=== PATIENT | female | born 1990 | race Two or more races ===

== ENCOUNTER 2018-01-04 21:27 | Emergency (ER) | payer SELFPAY ==
[~2018-01-04] VITALS: Ht 162.6 cm; Wt 63.5 kg
--- NOTE | 2018-01-04 21:50 | NUR ---
TO BED 6 A 27 YO FEMALE PT BIB FRIEND FROM HOME, PT C/O HAVING A 5 MINUTE SIEZURE EARLIER AND FEEL ALOT OF ANXIETY. PATIENT TOOK XANAX PRIOR TO ARRIVAL. PATIENT IS AAOX4. VSS. NAD NOTED. SKIN WARM AND DRY. AMBULATORY. SAFETY MEASURES IN PLACE. FRIEND AT BEDSIDE.
[2018-01-04] MEDS ORDERED: LORAZEPAM INJ 2 MG/ML VIAL ONE (22:41)
[2018-01-04 22:49] LABS: APPEARANCE,URINE SL CLOUDY (CLEAR); BILIRUBIN,URINE NEGATIVE (NEGATIVE); BLOOD, URINE NEGATIVE Ery/uL (NEGATIVE); COLOR,URINE YELLOW (YELLOW); KETONES,URINE NEGATIVE (NEGATIVE); LEUKOCYTE ESTERASE ,URINE 2+ (NEGATIVE); NITRITE, URINE NEGATIVE (NEGATIVE); PROTEIN,URINE NEGATIVE (NEGATIVE); UGLUCOSE NEGATIVE (NEGATIVE); UROBILINOGEN,URINE 0.2 EU/dL (0.2)
--- NOTE | 2018-01-04 22:50 | NUR ---
STARTED A SALINE LOCK ON THE LAC G18, BLOOD DRAWN AND SENT TO LAB.
--- NOTE | 2018-01-04 22:56 | NUR ---
MEDICATED PATIENT ORDERED BY JULIA ALDANA.
[2018-01-04 22:57] LABS: BACTERIA,URINE None seen /HPF (None Seen); RBC,URINE NONE SEEN /HPF (0-2); SQUAMOUS EPITHELIAL CELL,UR Many /HPF (None Seen)
[2018-01-04] MEDS ORDERED: IV NS 0.9% 1,000 ML BAG IV ONE (23:00)
[2018-01-04] MEDS ORDERED: LORAZEPAM INJ 2 MG/ML VIAL IVP ONE (23:00)
[2018-01-04 23:08] LABS: BASOPHILS % (AUTO) 0.7 % (0.0-2.0); EOSINOPHILS # (AUTO) 0.1 /CMM (0.0-0.7); EOSINOPHILS % (AUTO) 1.3 % (0.0-6.0); HEMATOCRIT 42 % (33-45); HEMOGLOBIN 14.3 g/dL (11.5-14.8); LYMPHOCYTES # (AUTO) 2.1 /CMM (0.8-4.8); LYMPHOCYTES % (AUTO) 49.2 % (20.0-44.0); MEAN CORPUSCULAR HEMOGLOBIN 30 PG (26.0-33.0); MEAN CORPUSCULAR HGB CONC 34 g/dl (31.0-36.0); MEAN CORPUSCULAR VOLUME 87 fL (82-100); MONOCYTES # (AUTO) 0.3 /CMM (0.1-1.30); MONOCYTES % (AUTO) 6.9 % (2.0-12.0); NEUTROPHILS # (AUTO) 1.8 /CMM (1.8-8.9); NEUTROPHILS % (AUTO) 41.9 % (43.0-81.0); PLATELET COUNT (AUTO) 292 /CMM (150-450); RDW COEFFICIENT OF VARIATION 12.9 (11.5-15.0); RED BLOOD CELL COUNT(AUTO) 4.84 MIL/uL (4.0-5.2); WHITE BLOOD COUNT (AUTO) 4.2 K/uL (4.3-11.0)
[2018-01-04 23:21] LABS: CALCIUM, SERUM 9.7 mg/dL (8.5-10.1); CARBON DIOXIDE 26 mmol/L (21-32); CHLORIDE 104 mmol/L (98-107); CREATININE 0.6 mg/dL (0.6-1.3); GLUCOSE 86 mg/dL (74-106); POTASSIUM 3.5 mmol/L (3.5-5.1); SODIUM SERUM 142 mmol/L (136-145); UREA NITROGEN, BLOOD 4 mg/dL (7-18)
[2018-01-04 23:23] LABS: INR 1.01 (0.87-1.13)
[2018-01-04] MEDS ORDERED: diphenhydrAMINE HCL 50 MG/ML VIAL ONE (23:24)
[2018-01-04] MEDS ORDERED: ONDANSETRON HCL/PF 4 MG/2 ML VIAL ONE (23:24)
[2018-01-04 23:27] LABS: ALANINE AMINOTRANSFERASE 27 U/L (12-78); ALBUMIN 4.3 g/dL (3.4-5.0); ALCOHOL, BLOOD < 3 mg/dL (0-0); ALKALINE PHOSPHATASE 75 U/L (46-116); ASPARTATE AMINOTRANSFERASE 19 U/L (15-37); BILIRUBIN,DIRECT 0.2 mg/dL (0.0-0.2); BILIRUBIN,TOTAL 0.9 mg/dL (0.2-1.0); TOTAL PROTEIN, SERUM 7.7 g/dL (6.4-8.2)
[2018-01-04] MEDS ORDERED: diphenhydrAMINE HCL 50 MG/ML VIAL IV ONE (23:30)
[2018-01-04] MEDS ORDERED: ONDANSETRON HCL/PF 4 MG/2 ML VIAL IV ONE (23:30)
[2018-01-05] MEDS ORDERED: CIPROFLOXACIN HCL 500 MG TABLET ONE (00:15)
--- NOTE | 2018-01-05 00:22 | NUR ---
IV removed. Catheter intact and site benign. Pressure and 4x4 applied to site. No bleeding noted. Patient discharged to home in stable condition. Written and verbal after care instructions given. Patient verbalizes understanding of instruction. Patient is ambulatory with steady gait. Instructed patient not to drive. vss. nad noted. No further complaints.
[2018-01-05 00:23] VITALS: BP 133/74
[2018-01-05] MEDS ORDERED: CIPROFLOXACIN HCL 250 MG TABLET PO ONE (00:30)
== END 2018-01-05 00:24 | disposition home or self-care (01) ==
LOC: ER 21:35
DX: F41.9 Anxiety disorder, unspecified (principal); N39.0 Urinary tract infection, site not specified; Z88.1 Allergy status to other antibiotic agents
CPT/HCPCS: 36415; 70450; 80048; 80076; 80305; 81001; 83735; 84703; 85025; 85730; 87077; 87086; 93005; 96361; 96374; 96375; 99285; A4606; G0480; J1200; J2060; J2405; J7030; Z7610; 81000-TC